=== PATIENT | female | born 1975 | race Caucasian/White ===

== ENCOUNTER → 2016-10-15 | Outpatient (CLI) | payer OTHER ==
[~2016-10-15] MED LIST: ALAVERT10 MG PO; AMBIEN10 M1 PO; AYGESTIN5 MG PO; CARVEDILOL3.125 MG PO; CATAFLAM50 MG PO; CELEBREX200 MG PO; CEPHALEXIN500 M1 PO; ETOLDOLAC400 MG PO; FLEXERIL10 MG PO; FLONASE ALLERG9.9 ML NAS; HYDROCODONE BIT1 T11 PO; LEVORPHANOL TART2 MG PO; LIPITOR10 MG PO; MOTRIN800 MG PO; NAPROSYN500 MG PO; NORFLEX100 MG PO; PERCOCET 325 MG1 TA2 PO; PRILOSEC40 MG PO; PROAIR HFA0.09 MG/AC INH; SINGULAIR CHEWAB5 MG PO; SYMBICORT1 AE1 INH; ULTRAM50 MG PO; VENLAFAXINE75 M1 PO; VICODIN ES 7501 TAB PO; VITAMIN D50000 I1 PO; ZYRTEC10 M3 PO
--- NOTE | ~2016-10-15 | ST ---
[place], [place] EXERCISE STRESS TEST REPORT [id number] UNIT #: [id number] ROOM: DOCTOR: LUIS GARSIA MD BIRTHDATE: [birth year] DOS: 10/15/2016 The patient walked on the Roque protocol, duration of 3 minutes. Heart rate is 158, which is 88% of predicted heart rate. Baseline cardiogram sinus rhythm with nonspecific ST-T changes. The patient has extremely limited functional capacity, have shortness of breath. No chest discomfort. Blood pressure and heart rate response was normal. FINAL IMPRESSION: Limited functional capacity, no EKG changes with exercise. No chest pain with exercise. No dysrhythmia with exercise. Positive shortness of breath. This is a negative stress test by EKG criteria. LUIS GARSIA MD CM:STRESS:EXERCISE STRESS TEST REPORT [id number] LUIS GARSIA MD
== END | disposition home or self-care (01) ==
LOC: CARD 02:06
DX: Z01.818 Encounter for other preprocedural examination (principal); R07.9 Chest pain, unspecified

== ENCOUNTER 2016-11-19 14:19 | Emergency (ER) | payer OTHER ==
[~2016-11-19] VITALS: Wt 93.4 kg
[2016-11-19 14:51] VITALS: BP 110/78
[2016-11-19 15:24] LABS: BASO # 0.1 10*3/uL (0.0-0.1); BASO % 0.7 % (0.0-1.0); EOS # 0.3 10*3/uL (0.0-0.4); EOS % 2.4 % (1.0-4.0); HEMATOCRIT 41.7 % (37.0-47.0); HEMOGLOBIN 14.1 g/dl (12.0-16.0); LYMPH # 4.9 10*3/uL (1.3-4.4); LYMPH % 45.1 % (27.0-41.0); MEAN CELL VOLUME 91.2 fl (81.0-99.0); MEAN CORPUSCULAR HGB 30.9 pg (27.0-31.0); MEAN CORPUSCULAR HGB CONC 33.8 g/dl (33.0-37.0); MEAN PLATELET VOLUME 9.5 fl (9.6-12.3); MONO # 0.8 10*3/uL (0.1-1.0); NEUT # 4.9 10*3/uL (2.3-7.9); NEUT % 44.6 % (47.0-73.0); PLATELET COUNT AUTOMATED 381 10*3/uL (130-400); RED BLOOD COUNT 4.57 10*6/uL (4.10-5.10); RED CELL DISTRI WIDTH 13.1 % (0-14.5); WHITE BLOOD COUNT 10.9 10*3/uL (4.8-10.8)
[2016-11-19 15:31] LABS: INTERNATIONAL NORM RATIO 0.9 (2.0-3.5)
[2016-11-19 15:42] LABS: ALBUMIN 3.2 gm/dl (3.1-4.5); ALKALINE PHOSPHATASE 84 U/L (45-117); BUN 7 mg/dl (7-24); CHLORIDE 108 mmol/L (98-107); CREATININE 0.63 mg/dL (0.55-1.02); POTASSIUM 3.7 mmol/L (3.5-5.1); SGOT/AST 10 IU/L (3-35); SGPT/ALT 17 U/L (12-78); SODIUM 140 mmol/L (136-145); TOTAL PROTEIN 6.9 gm/dL (6.4-8.2)
[2016-11-19 15:44] LABS: TROPONIN I < 0.015 ng/ml (<0.045)
[2016-11-19] MEDS ORDERED: MEDROL DOSEPAK4 MG PO (16:12)
== END 2016-11-19 17:34 | disposition home or self-care (01) ==
LOC: ED 14:19
PROVIDERS: Nurse Practitioner Family
DX: S16.1XXA Strain of muscle, fascia and tendon at neck level, initial encounter (principal); R55 Syncope and collapse; E78.5 Hyperlipidemia, unspecified; I10 Essential (primary) hypertension; F17.200 Nicotine dependence, unspecified, uncomplicated; Z88.8 Allergy status to other drugs, medicaments and biological substances; Z88.6 Allergy status to analgesic agent; Z79.899 Other long term (current) drug therapy

== ENCOUNTER → 2017-04-30 | Outpatient (CLI) | payer OTHER ==
[~2017-04-30] MED LIST changes: +MEDROL DOSEPAK4 MG PO
[2017-04-30 15:05] LABS: BASO # 0.1 10*3/uL (0.0-0.1); BASO % 0.8 % (0.0-1.0); EOS # 0.1 10*3/uL (0.0-0.4); EOS % 1.3 % (1.0-4.0); HEMATOCRIT 43.1 % (37.0-47.0); HEMOGLOBIN 14.5 g/dl (12.0-16.0); LYMPH # 3.1 10*3/uL (1.3-4.4); LYMPH % 29.9 % (27.0-41.0); MEAN CELL VOLUME 92.3 fl (81.0-99.0); MEAN CORPUSCULAR HGB CONC 33.6 g/dl (33.0-37.0); MEAN PLATELET VOLUME 9.3 fl (9.6-12.3); MONO # 0.7 10*3/uL (0.1-1.0); MONO % 6.4 % (3.0-9.0); NEUT # 6.3 10*3/uL (2.3-7.9); NEUT % 61.3 % (47.0-73.0); PLATELET COUNT AUTOMATED 386 10*3/uL (130-400); RED BLOOD COUNT 4.67 10*6/uL (4.10-5.10); WHITE BLOOD COUNT 10.2 10*3/uL (4.8-10.8)
[2017-05-01 15:06] LABS: LEUKOCYTE ALK PHOSPHATASE 56 (25-130)
== END | disposition home or self-care (01) ==
LOC: LAB 02:24
PROVIDERS: Internal Medicine Hematology & Oncology
DX: D72.828 Other elevated white blood cell count (principal); D75.9 Disease of blood and blood-forming organs, unspecified

== ENCOUNTER 2017-08-09 14:47 | Emergency (ER) | payer OTHER ==
[~2017-08-09] VITALS: Ht 160 cm; Wt 92.1 kg
[2017-08-09 15:53] VITALS: BP 109/60
== END 2017-08-09 16:36 | disposition home or self-care (01) ==
LOC: ED 14:47
DX: M25.552 Pain in left hip (principal); Z98.890 Other specified postprocedural states; Z79.899 Other long term (current) drug therapy; Z88.6 Allergy status to analgesic agent; Z88.8 Allergy status to other drugs, medicaments and biological substances

== ENCOUNTER 2017-08-16 10:44 | Emergency (ER) | payer OTHER ==
[~2017-08-16] VITALS: Ht 161.2 cm; Wt 89.8 kg
[2017-08-16 10:46] VITALS: BP 117/80
== END 2017-08-16 11:20 | disposition home or self-care (01) ==
LOC: ED 10:44
DX: J02.9 Acute pharyngitis, unspecified (principal); Z79.899 Other long term (current) drug therapy; Z98.890 Other specified postprocedural states; Z88.6 Allergy status to analgesic agent; Z88.8 Allergy status to other drugs, medicaments and biological substances

== ENCOUNTER → 2017-08-20 | Outpatient (CLI) | payer OTHER ==
[2017-08-20 15:16] LABS: BASO # 0.1 10*3/uL (0.0-0.1); BASO % 0.9 % (0.0-1.0); EOS # 0.3 10*3/uL (0.0-0.4); EOS % 2.3 % (1.0-4.0); HEMATOCRIT 41.3 % (37.0-47.0); HEMOGLOBIN 13.8 g/dl (12.0-16.0); LYMPH # 4.1 10*3/uL (1.3-4.4); LYMPH % 35.1 % (27.0-41.0); MEAN CELL VOLUME 90.8 fl (81.0-99.0); MEAN CORPUSCULAR HGB 30.3 pg (27.0-31.0); MEAN CORPUSCULAR HGB CONC 33.4 g/dl (33.0-37.0); MEAN PLATELET VOLUME 9.7 fl (9.6-12.3); MONO # 1.1 10*3/uL (0.1-1.0); MONO % 9.8 % (3.0-9.0); NEUT % 51.6 % (47.0-73.0); PLATELET COUNT AUTOMATED 447 10*3/uL (130-400); RED BLOOD COUNT 4.55 10*6/uL (4.10-5.10); RED CELL DISTRI WIDTH 13.2 % (0-14.5); WHITE BLOOD COUNT 11.6 10*3/uL (4.8-10.8)
== END | disposition home or self-care (01) ==
LOC: LAB 14:36
PROVIDERS: Internal Medicine Hematology & Oncology
DX: D72.828 Other elevated white blood cell count (principal)